=== PATIENT | female | born 1940 | race Caucasian/White ===

== ENCOUNTER 2020-03-04 12:33 | Observation (INO) ==
[2020-03-04] MEDS ORDERED: Isovue-370 500 ML BOTTLE IVP ONE (12:38)
[2020-03-04 14:08] LABS: Bilirubin,Urine Negative (Negative); Blood,Urine Negative (Negative); Clarity,Urine Clear (Clear); Color,Urine Yellow (Yellow); Glucose,Urine (UA) Normal (Normal); Ketones,Urine Negative (Negative); Leukocyte Esterase,Urine Negative (Negative); Nitrite,Urine Negative (Negative); Protein,Urine Negative (Neg-Trace); Specific Gravity,Urine 1.021 (1.010-1.025); Urobilinogen,Urine Normal (Normal)
[2020-03-04 14:40] LABS: Hematocrit 37.9 % (35.3-44.9); Mean Corpuscular HGB Conc 31.7 g/dL (31.6-35.5); Mean Corpuscular Hemoglobin 31.3 pg (28.0-33.3); Mean Corpuscular Volume 98.7 fL (83.0-100.0); Mean Platelet Volume 10.6 fL (9.4-12.4); Platelet Count 257 K/mcL (140-400); Red Blood Count 3.84 M/mcL (3.82-4.97); White Blood Count 7.2 K/mcL (4.3-11.1)
[2020-03-04 14:45] LABS: Prothrombin Time 10.8 Seconds (9.4-12.1)
[2020-03-04 14:48] LABS: Activated Partial Thrombo Time 31.6 Seconds (26.0-36.0)
[2020-03-04 15:01] LABS: BUN/Creatinine Ratio 27 (6-26); Blood Urea Nitrogen 19 mg/dL (8-23); Calcium 9.7 mg/dL (8.6-10.3); Carbon Dioxide 26 mEq/L (23-29); Chloride 103 mEq/L (98-107); Glucose 92 mg/dL (70-105); Osmolality,Calculated 286 (280-300); Potassium 3.6 mEq/L (3.5-5.1); Sodium 137 mEq/L (136-145); Troponin I < 0.03 ng/mL (< 0.04); eGFR For African Americans > 60 (> 60); eGFR For Non-African Americans > 60 (> 60)
[2020-03-04] MEDS ORDERED: Naloxone 0.4 MG/ML INJ IVP PRN (16:24)
[2020-03-04] MEDS ORDERED: Aspirin 325 MG TABLET PO ONE (16:36)
[2020-03-04 17:00] LABS: Estimated Average Glucose 117 mg/dl
[2020-03-04 17:04] LABS: Cholesterol 187 mg/dL (< 200); HDL Cholesterol 62 mg/dL (40-59); LDL Cholesterol,Calculated 107 mg/dL (0-99); Triglycerides 90 mg/dL (< 150)
[2020-03-04] MEDS: *HR* Heparin 5,000 UNIT/ML VIAL SQ SCH ×2 (18:34→18:37)
[2020-03-05] MEDS: *HR* Heparin 5,000 UNIT/ML VIAL SQ SCH (05:59)
[2020-03-05 07:17] LABS: Hematocrit 37.7 % (35.3-44.9); Hemoglobin 12.3 g/dL (11.5-15.4); Mean Corpuscular HGB Conc 32.6 g/dL (31.6-35.5); Mean Corpuscular Hemoglobin 31.5 pg (28.0-33.3); Mean Corpuscular Volume 96.4 fL (83.0-100.0); Mean Platelet Volume 10.5 fL (9.4-12.4); Platelet Count 252 K/mcL (140-400); Red Blood Count 3.91 M/mcL (3.82-4.97); Red Cell Distribution Width 13.1 % (11.5-14.5); White Blood Count 6.1 K/mcL (4.3-11.1)
[2020-03-05 07:36] LABS: BUN/Creatinine Ratio 29 (6-26); Blood Urea Nitrogen 21 mg/dL (8-23); Calcium 9.6 mg/dL (8.6-10.3); Carbon Dioxide 28 mEq/L (23-29); Chloride 104 mEq/L (98-107); Glucose 89 mg/dL (70-105); Osmolality,Calculated 288 (280-300); Potassium 4.1 mEq/L (3.5-5.1); Sodium 138 mEq/L (136-145); eGFR For African Americans > 60 (> 60); eGFR For Non-African Americans > 60 (> 60)
[2020-03-05] MEDS ORDERED: lisinopriL 5 MG TABLET PO SCH (09:00)
[2020-03-05 10:55] VITALS: BP 130/73
== END 2020-03-05 16:45 | disposition home or self-care (01) ==
LOC: 3BNU 12:33 → EMEROOARM 12:33 → SUATTDRO 15:59 → 3BNU 16:29
PROVIDERS: ADMIT Internal Medicine; ATTEND Student in an Organized Health Care Education/Training Program

== ENCOUNTER 2020-09-05 20:16 | Observation (INO) ==
[2020-09-05 20:50] LABS: Basophils # 0.1 K/mcL (0.0-0.2); Basophils % 0.7 %; Eosinophils % 0.2 %; Hematocrit 36.5 % (35.3-44.9); Hemoglobin 11.7 g/dL (11.5-15.4); Immature Granulocytes % 0.2 % (0-4); Lymphocytes # 1.6 K/mcL (0.6-4.6); Lymphocytes % 17.7 %; Mean Corpuscular HGB Conc 32.1 g/dL (31.6-35.5); Mean Corpuscular Hemoglobin 31.5 pg (28.0-33.3); Mean Corpuscular Volume 98.1 fL (83.0-100.0); Mean Platelet Volume 10.2 fL (9.4-12.4); Monocytes # 0.7 K/mcL (0.0-1.3); Monocytes % 7.6 %; Neutrophils # 6.8 K/mcL (1.6-8.9); Platelet Count 263 K/mcL (140-400); Red Blood Count 3.72 M/mcL (3.82-4.97); Red Cell Distribution Width 13.1 % (11.5-14.5); Segmented Neutrophils % 73.6 %; White Blood Count 9.2 K/mcL (4.3-11.1)
[2020-09-05 21:02] LABS: Prothrombin Time 11.9 Seconds (9.4-12.1)
[2020-09-05 21:05] LABS: Activated Partial Thrombo Time 26.4 Seconds (26.0-36.0)
[2020-09-05 21:12] LABS: Alanine Aminotransferase 16 Units/L (7-52); Albumin 4.3 g/dL (3.5-5.7); Albumin/Globulin Ratio 1.5 (1.1-2.2); Alkaline Phosphatase 64 Units/L (34-104); Aspartate Amino Transferase 20 Units/L (13-39); BUN/Creatinine Ratio 27 (6-26); Bilirubin,Direct 0.1 mg/dL (0.0-0.2); Bilirubin,Indirect 0.3 mg/dL (0.0-1.0); Bilirubin,Total 0.4 mg/dL (0.3-1.0); Blood Urea Nitrogen 27 mg/dL (8-23); Calcium 9.9 mg/dL (8.6-10.3); Carbon Dioxide 28 mEq/L (23-29); Chloride 102 mEq/L (98-107); Globulin 2.8 g/dL (2.4-3.5); Glucose 88 mg/dL (70-105); Osmolality,Calculated 293 (280-300); Potassium 3.9 mEq/L (3.5-5.1); Sodium 139 mEq/L (136-145); Total Protein 7.1 g/dL (6.4-8.9); Troponin I < 0.03 ng/mL (< 0.04); eGFR For African Americans > 60 (> 60); eGFR For Non-African Americans 54 (> 60)
[2020-09-05 21:25] LABS: Thyroid Stimulating Hormone 1.742 mcIU/mL (0.340-5.600)
[2020-09-05 22:19] LABS: Bacteria,Urine Few per hpf (None-Few); Bilirubin,Urine Negative (Negative); Blood,Urine Negative (Negative); Clarity,Urine Clear (Clear); Color,Urine Yellow (Yellow); Glucose,Urine (UA) Normal (Normal); Ketones,Urine Negative (Negative); Leukocyte Esterase,Urine Moderate (Negative); Mucus,Urine Few per lpf (None-Few); Nitrite,Urine Negative (Negative); PH,Urine 6.5 pH Units (5.0-8.0); Protein,Urine Trace mg/dL (Neg-Trace); Specific Gravity,Urine 1.026 (1.010-1.025); Squamous Epithelial Cell,Urine Few per hpf (None-Few); Urobilinogen,Urine Normal (Normal); WBC,Urine 15-30 per hpf (0-3)
[2020-09-05 22:21] LABS: Amphetamine Screen,Urine Negative ng/mL (Cutoff=1000); Barbiturate Screen,Urine Negative ng/mL (Cutoff=200); Benzodiazepines Screen,Urine Negative ng/mL (Cutoff=200); Cannabinoid Screen,Urine Negative ng/mL (Cutoff = 50); Cocaine Screen,Urine Negative ng/mL (Cutoff= 300); Opiate Screen,Urine Negative ng/mL (Cutoff=300); Phencyclidine Screen,Urine Negative ng/mL (Cutoff=25)
[2020-09-06] MEDS ORDERED: Naloxone 0.4 MG/ML INJ IVP PRN (00:47)
[2020-09-06] MEDS: 0.9 % Sodium Chloride 1,000 ML IVC SCH ×2 (01:00→14:49)
[2020-09-06 04:39] LABS: Hematocrit 36.2 % (35.3-44.9); Hemoglobin 11.7 g/dL (11.5-15.4); Mean Corpuscular HGB Conc 32.3 g/dL (31.6-35.5); Mean Corpuscular Hemoglobin 31.2 pg (28.0-33.3); Mean Corpuscular Volume 96.5 fL (83.0-100.0); Platelet Count 256 K/mcL (140-400); Red Blood Count 3.75 M/mcL (3.82-4.97); Red Cell Distribution Width 13.1 % (11.5-14.5); White Blood Count 8.6 K/mcL (4.3-11.1)
[2020-09-06 04:59] LABS: BUN/Creatinine Ratio 36 (6-26); Blood Urea Nitrogen 31 mg/dL (8-23); Calcium 9.4 mg/dL (8.6-10.3); Carbon Dioxide 29 mEq/L (23-29); Chloride 104 mEq/L (98-107); Glucose 92 mg/dL (70-105); Osmolality,Calculated 296 (280-300); Phosphorous 3.8 mg/dL (2.7-4.5); Potassium 3.7 mEq/L (3.5-5.1); Sodium 140 mEq/L (136-145); eGFR For African Americans > 60 (> 60); eGFR For Non-African Americans > 60 (> 60)
[2020-09-06 05:20] LABS: VBG HCO3 28 mEq/L (21-27); VBG PCO2 50 mmHg (41-51); VBG PH 7.36 pH Units (7.32-7.42); VBG PO2 92 mmHg (25-50)
[2020-09-06] MEDS: cefTRIAXone 1,000 MG in Water for inj. (sterile) 10 ML IVP SCH (08:41)
[2020-09-06] MEDS: lisinopriL 5 MG TABLET PO SCH (10:37)
[2020-09-06] MEDS: *HR* Heparin 5,000 UNIT/ML VIAL SQ SCH (16:33)
[2020-09-06] MEDS ORDERED: Haloperidol Oral Conc 10 MG/5 ML UDC PO ONE (17:27)
[2020-09-07] MEDS ORDERED: haloperidoL 1 MG TABLET PO ONE ×2 (01:43→11:33)
[2020-09-07] MEDS ORDERED: Haloperidol Lactate 5 MG/ML VIAL IVP ONE (02:03)
[2020-09-07] MEDS: 0.9 % Sodium Chloride 1,000 ML IVC SCH ×2 (04:57→17:41)
[2020-09-07] MEDS: *HR* Heparin 5,000 UNIT/ML VIAL SQ SCH ×2 (04:59→17:42)
[2020-09-07] MEDS: lisinopriL 5 MG TABLET PO SCH ×3 (08:42→11:29)
[2020-09-07] MEDS: Aspirin Enteric Coated 81 MG Tablet PO SCH ×2 (08:42→09:06)
[2020-09-07] MEDS: cefTRIAXone 1,000 MG in Water for inj. (sterile) 10 ML IVP SCH (08:42)
[2020-09-07] MEDS ORDERED: *HR* LORazepam 2 MG/ML VIAL IVP ONE (15:16)
[2020-09-08] MEDS: *HR* Heparin 5,000 UNIT/ML VIAL SQ SCH ×2 (05:05→16:14)
[2020-09-08] MEDS: lisinopriL 5 MG TABLET PO SCH (08:25)
[2020-09-08] MEDS: Aspirin Enteric Coated 81 MG Tablet PO SCH (08:25)
[2020-09-08 12:02] LABS: Folate 20.9 ng/mL (3.0-16.0)
[2020-09-08] MEDS ORDERED: lisinopriL 5 MG TABLET PO ONE (16:42)
[2020-09-09] MEDS: 0.9 % Sodium Chloride 1,000 ML IVC SCH ×2 (01:32→16:05)
[2020-09-09] MEDS: *HR* Heparin 5,000 UNIT/ML VIAL SQ SCH ×2 (05:44→17:04)
[2020-09-09] MEDS: Aspirin Enteric Coated 81 MG Tablet PO SCH (08:48)
[2020-09-09] MEDS: lisinopriL 5 MG TABLET PO SCH (08:48)
[2020-09-09] MEDS ORDERED: Haloperidol Lactate 5 MG/ML VIAL IVP PRN (14:29)
[2020-09-09] MEDS ORDERED: Ziprasidone 10 MG in Water for inj. (sterile) 0.5 ML IM ONE (17:01)
[2020-09-10] MEDS: 0.9 % Sodium Chloride 1,000 ML IVC SCH ×2 (01:49→14:24)
[2020-09-10] MEDS: *HR* Heparin 5,000 UNIT/ML VIAL SQ SCH ×2 (05:24→18:56)
[2020-09-10] MEDS: Haloperidol Oral Conc 10 MG/5 ML UDC PO PRN ×2 (08:19→21:13)
[2020-09-10] MEDS: lisinopriL 5 MG TABLET PO SCH (08:20)
[2020-09-10] MEDS: Aspirin Enteric Coated 81 MG Tablet PO SCH (08:20)
[2020-09-11] MEDS: 0.9 % Sodium Chloride 1,000 ML IVC SCH (03:33)
[2020-09-11] MEDS: *HR* Heparin 5,000 UNIT/ML VIAL SQ SCH (05:41)
[2020-09-11] MEDS: Aspirin Enteric Coated 81 MG Tablet PO SCH (08:04)
[2020-09-11] MEDS: lisinopriL 5 MG TABLET PO SCH (08:04)
[2020-09-11 10:34] VITALS: BP 158/84
== END 2020-09-11 12:53 ==
LOC: 3BNU 20:16 → EMEROOARM 20:16 → SUATTDRO 23:52 → 3BNU 09-06 00:39
PROVIDERS: ADMIT Internal Medicine; ATTEND Internal Medicine